=== PATIENT | male | born 1985 ===

== ENCOUNTER 2024-03-05 13:52 | Emergency (ER) | payer MEDICAID, OTHER, SELFPAY ==
[2024-03-05] VITALS (14 sets, daily range): BP systolic 112–140; BP diastolic 66–97; PULSE 78–108; RESP 12–32; TEMP 36.3; O2SAT 91–98; BMI 26.6
[2024-03-05 17:22] LABS: UR Morphine/Opiate cutoff 300 Negative (Negative); Ur Creatinine Normal (Normal); Ur Specific Gravity Normal (Normal); Urine Amphetamines Negative (Negative); Urine Barbiturates Negative (Negative); Urine Benzodiazepines Negative (Negative); Urine Cocaine Negative (Negative); Urine MDMA Negative (Negative); Urine Methadone Negative (Negative); Urine Methamphetamines Negative (Negative); Urine Oxycodone Negative (Negative); Urine Phencyclidine Negative (Negative); Urine Tetrahydrocannabinol Negative (Negative); Urine Tricyclic Antidepressant Negative (Negative); Urine pH Normal (Normal)
--- NOTE | 2024-03-05 17:22 | PC.NURSE ---
Monitor in room did not have correct patient ID information. This CLASSIFICATION CONTROL CLERK gathered vitals q30 from the time the patient was admitted and manually charted them.
[2024-03-05 17:31] LABS: Add Manual Diff / Slide Review NO; Basophils Absolute Auto 100 /uL (0-100); Basophils Percent Auto 2.7 % (0-2); Eosinophils Absolute Auto 100 /uL (0-450); Eosinophils Percent Auto 1.3 % (2-4); Hematocrit 42.7 % (41-53); Hemoglobin 14.5 g/dL (13.5-17.5); Lymphocytes Absolute Auto 1800 /uL (1100-4500); Lymphocytes Percent Auto 40.1 % (25-40); Mean Corpuscular HGB Conc 33.9 % (30-36); Mean Corpuscular Hemoglobin 34.7 PG (26-34); Mean Corpuscular Volume 102.1 fL (80-100); Monocytes Absolute Auto 300 /uL (0-900); Monocytes Percent Auto 6.8 % (3-14); Neutrophils Absolute Auto 2300 /uL (1500-7000); Neutrophils Percent Auto 49.1 % (50-75); Platelet Count 241 X10^3/uL (150-400); Red Blood Cell Count 4.18 X10^6/uL (4.5-5.9); Red Cell Distribution Width 14.5 % (11.6-14.8); White Blood Cell Count 4.6 X10^3/uL (4.5-11.0)
[2024-03-05 17:39] LABS: Alanine Aminotransferase 107 IU/L (<50); Albumin 4.5 g/dL (3.5-5.0); Albumin Globulin Ratio 1.7 (1.0-2.8); Alkaline Phosphatase 45 U/L (38-126); Aspartate Aminotransferase 113 IU/L (17-59); BUN Creatinine Ratio 9.9 (6-22); Bilirubin Total 0.6 mg/dL (0.2-1.3); Blood Urea Nitrogen 7 mg/dL (9-20); Calcium 8.4 mg/dL (8.4-10.2); Carbon Dioxide 26 mmol/L (22-32); Chloride 104 mmol/L (98-107); Estimated Glomerular Filt Rate > 60 mL/min (>60); Globulin 2.7 g/dL (1.7-4.1); Glucose 91 mg/dL (70-100); HEMOLYSIS 16 (0-50); Potassium 3.9 mmol/L (3.4-5.1); Sodium 142 mmol/L (137-145); Total Protein 7.2 g/dL (6.3-8.2)
[2024-03-05 17:40] LABS: COVID19 -Nasal RAPID Negative (Negative)
[2024-03-05 17:47] LABS: Ethanol (ETOH) 399 mg/dL
[2024-03-05 18:16] LABS: TSH w/ Reflex to FT4 0.36 uIU/mL (0.47-4.68)
[2024-03-05] MEDS: PHENobarbital 65 MG/ML VIAL 260 MG IV (18:36)
[2024-03-05 18:42] LABS: Free T4, Direct Thyroxine 0.92 ng/dL (0.78-2.19)
--- NOTE | 2024-03-05 18:45 | ED.GENADULT ---
HPI - General Adult General Chief complaint: Toxicology Problem Stated complaint: panic or heart attack Cardiac hx (poss suicidal) Time Seen by Provider: 03/05/24 17:01 Source: patient Mode of arrival: Family Vehicle History of Present Illness HPI narrative: Patient is a 38-year-old male with a history of alcohol abuse and also history of alcohol withdrawal seizures who is here for evaluation of what he states was a panic attack or potentially thinking that he was going to have a seizure. He states that he was on Keppra. He states that he was supposed to take 500 mg 2 times a day. Triage note states that he sometimes takes his medication every other day but patient states he normally takes it at least 1 time a day. He did take it this morning but not this evening. He does admit to drinking alcohol. Initial triage states the patient was interested in detox/rehab. Upon my evaluation the patient states he was feeling like he was going to have a seizure. He states he was feeling very anxious. Here in the ER states he was feeling much better. He denies chest pain, shortness of breath, abdominal pain or any seizure activity. Patient History Social History Smoking Status: Current every day smoker Smoking Status: Current every day smoker tobacco type: vaping alcohol intake frequency: 3 or more drinks per day Alcohol type: hard liquor Substance Use Type: marijuana Exam Initial Vital Signs Initial Vital Signs: Vital Signs Temperature 97.4 F L 03/05/24 14:19 Pulse Rate 108 H 03/05/24 14:19 Respiratory Rate 16 03/05/24 14:19 Blood Pressure 120/81 03/05/24 14:19 Pulse Oximetry 97 03/05/24 14:19 Oxygen Delivery Method Room Air 03/05/24 14:19 Const General: cooperative, comfortable and No ill appearing HENMT Head: normal to inspection and normocephalic Resp Effort & Inspection: normal respiratory effort Cardio Rate: regular rate GI Inspection: normal to inspection and non-distended Skin General: no rashes or lesions noted Neuro General: patient alert, patient awake and moves all extremities Extrem General: capillary refill normal Scores GCS Lyle coma scale eye opening: Spontaneous Otto coma scale verbal response: Orientated Otto coma scale motor response: Obey commands Ylle coma scale total score: 15 Course Orders Ordered: ED Orders 03/05/24 15:56 Urine Drug Screen, Rapid Stat 03/05/24 17:15 COVID19 -Nasal RAPID Stat 03/05/24 17:17 Complete Blood Count AUTO DIFF Stat Comprehensive Metabolic Panel Stat Ethanol (ETOH) Stat Free T4, Direct Thyroxine Stat TSH w/ Reflex to FT4 Stat 03/05/24 18:14 Consult to LONG DISTANCE BILLING OPERATOR - Grind Operator Stat Discontinued Medications Levetiracetam (Levetiracetam 250 Mg Tablet) 500 mg PO NOW ONE Stop: 03/05/24 18:46 Last Admin: 03/05/24 19:02 Dose: 500 mg Documented By: ALEXANDER Phenobarbital (Phenobarbital 65 Mg/Ml Vial) 260 mg IV NOW ONE Stop: 03/05/24 18:30 Last Admin: 03/05/24 18:36 Dose: 260 mg Documented By: JACQUES Vital Signs Vital signs: Vital Signs - 8 hr 03/05/24 15:00 03/05/24 15:40 03/05/24 16:00 Pulse Rate 96 H 89 87 Respiratory Rate 32 H 22 Blood Pressure 125/66 124/84 112/71 Pulse Oximetry 96 98 95 Oxygen Delivery Method Room Air Room Air Room Air 03/05/24 17:00 03/05/24 17:14 03/05/24 17:15 Pulse Rate 79 78 Respiratory Rate 20 Blood Pressure 119/77 113/72 Pulse Oximetry 91 93 Oxygen Delivery Method Room Air 03/05/24 17:15 03/05/24 17:31 03/05/24 17:32 Pulse Rate 92 H 105 H Respiratory Rate 19 26 H Blood Pressure 131/97 H Pulse Oximetry 93 96 Oxygen Delivery Method 03/05/24 17:32 03/05/24 18:00 03/05/24 18:00 Pulse Rate 102 H 92 H Respiratory Rate 14 17 Blood Pressure 130/87 Pulse Oximetry 96 97 Oxygen Delivery Method Room Air 03/05/24 19:07 03/05/24 19:23 03/05/24 19:23 Pulse Rate 93 H 100 H Respiratory Rate 14 12 Blood Pressure 122/85 Pulse Oximetry 95 96 Oxygen Delivery Method Room Air 03/05/24 19:30 03/05/24 19:30 Pulse Rate 106 H Respiratory Rate 21 Blood Pressure 140/77 Pulse Oximetry 95 Oxygen Delivery Method Room Air Medical Decision Making Lab Data Lab results reviewed: Yes I reviewed the patient's lab results. 03/05/24 17:17 11/04/24 17:17 Labs: Lab Results 03/05/24 03/05/24 03/05/24 Range/Units 15:56 17:15 17:17 WBC 4.6 (4.5-11.0) X10^3/uL RBC 4.18 L (4.5-5.9) X10^6/uL Hgb 14.5 (13.5-17.5) g/dL Hct 42.7 (41-53) % MCV 102.1 H (80-100) fL MCH 34.7 H (26-34) PG MCHC 33.9 (30-36) % RDW 14.5 (11.6-14.8) % Plt Count 241 (150-400) X10^3/uL Neut % (Auto) 49.1 L (50-75) % Lymph % (Auto) 40.1 H (25-40) % [place] % (Auto) 6.8 (3-14) % Eos % (Auto) 1.3 L (2-4) % Baso % (Auto) 2.7 H (0-2) % Neut # (Auto) 2300 (2663-0056) /uL Lymph # (Auto) 1800 (4829-6472) /uL [place] # (Auto) 300 (0-900) /uL Eos # (Auto) 100 (0-450) /uL Baso # (Auto) 100 (0-100) /uL Sodium 142 (137-145) mmol/L Potassium 3.9 (3.4-5.1) mmol/L Chloride 104 (98-107) mmol/L Carbon Dioxide 26 (22-32) mmol/L BUN 7 L (9-20) mg/dL Creatinine 0.71 (0.66-1.25) mg/dL Estimated GFR > 60 (>60) mL/min BUN/Creatinine Ratio 9.9 (6-22) Glucose 91 (70-100) mg/dL Calcium 8.4 (8.4-10.2) mg/dL Total Bilirubin 0.6 (0.2-1.3) mg/dL AST 113 H (17-59) IU/L ALT 107 H (<50) IU/L Alkaline Phosphatase 45 (38-126) U/L Total Protein 7.2 (6.3-8.2) g/dL Albumin 4.5 (3.5-5.0) g/dL Globulin 2.7 (1.7-4.1) g/dL Albumin/Globulin Ratio 1.7 (1.0-2.8) TSH 0.36 L (0.47-4.68) uIU/mL Free T4 0.92 (0.78-2.19) ng/dL U Opiates 300ng/mL cut Negative (Negative) Ur Oxycodone Screen Negative (Negative) Urine Methadone Screen Negative (Negative) Ur Barbiturates Screen Negative (Negative) U Tricyclic Antidepress Negative (Negative) Ur Phencyclidine Scrn Negative (Negative) Ur Amphetamines Screen Negative (Negative) U Methamphetamines Scrn Negative (Negative) Ur MDMA Scrn (Ecstasy) Negative (Negative) U Benzodiazepines Scrn Negative (Negative) Urine Cocaine Screen Negative (Negative) U Marijuana (THC) Screen Negative (Negative) Urine pH Normal (Normal) Urine Specific [place] Normal (Normal) Ethyl Alcohol 399 H ( - 10) mg/dL Ur Creatinine Normal (Normal) SARS-CoV-2 (PCR) Negative (Negative) Urine Dip Bedside Urine Glucose Negative Bedside Urine Bilirubin - Negative Bedside Urine Ketone - Negative Urine Specific [place] 1.005 Bedside Urine Occult Blood - Negative Bedside Urine pH 6.5 Bedside Urine Protein - Negative Bedside Urine Urobilinogen - Negative Bedside Urine Nitrite - Negative Bedside Urine Leukocytes - Negative Esterase Point of care testing: Urine Dip Bedside Urine Glucose Negative Bedside Urine Bilirubin - Negative Bedside Urine Ketone - Negative Urine Specific [place] 1.005 Bedside Urine Occult Blood - Negative Bedside Urine pH 6.5 Bedside Urine Protein - Negative Bedside Urine Urobilinogen - Negative Bedside Urine Nitrite - Negative Bedside Urine Leukocytes - Negative Esterase MDM Narrative Medical decision making narrative: Upon my evaluation the patient was clinically sober. He was alert and oriented x3. GCS of 15. Tolerating oral intake. Is ambulatory. No seizure activity. Patient states he was feeling much better. He was given a dose of his Keppra. I had a long discussion with him regarding his alcohol use. He states that he has a place that stated that they would have beds available tomorrow that he was like to go home. He was family/girlfriend with him that will take him home. He states that he does not want to stay in the emergency department this evening. He felt comfortable going home. Will discharge home with return precautions. He expressed understanding and agreement with plan. Discharge Plan Departure Patient Disposition: Home Clinical Impression: Alcoholic intoxication, Panic disorder Instructions: DI for Alcohol Use Disorder Activity Restrictions/Additional Instructions: It was important that you take your Keppra 2 times a day. No driving for the next 24 hours or in the future if you drink alcohol. Either recommend that you pursue alcohol detox/rehab tomorrow. Return to the emergency department for new or worsening symptoms. Stand Alone Forms: Patient Portal/API/Survey
[2024-03-05] MEDS: levETIRAcetam 250 MG TABLET 500 MG PO (19:02)
== END 2024-03-05 19:37 | disposition home or self-care (01) ==
PROVIDERS: Emergency Medicine; Emergency Provider Emergency Medicine
DX: F10.129 Alcohol abuse with intoxication, unspecified (principal); Y90.8 Blood alcohol level of 240 mg/100 ml or more; Z11.52 Encounter for screening for COVID-19; F41.0 Panic disorder [episodic paroxysmal anxiety]; R40.2412 Glasgow coma scale score 13-15, at arrival to emergency department
CPT/HCPCS: 36415; 80053; 80305; 80320; 81003; 84439; 84443; 85025; 87635; 96374; 99284; J2560

== ENCOUNTER 2024-04-16 10:38 | Emergency (ER) | payer OTHER, SELFPAY ==
[2024-04-16] VITALS (16 sets, daily range): BP systolic 110–129; BP diastolic 67–92; PULSE 75–97; RESP 17–25; TEMP 36.8; O2SAT 93–97; BMI 26.3
--- NOTE | 2024-04-16 10:53 | EKG_ITS ---
[address] [address] Test Date: 2024-04-16 Pat Name: Mason Amaral Department: Room: Gender: Male Fare Enforcement Officer: TREVOR : 1985 Requested By: Order Number: [id number] Reading MD: Mason Coates Measurements Intervals [place] Rate: 78 P: 51 KS: 174 QRS: 53 QRSD: 90 T: 31 QT: 380 QTc: 433 Interpretive Statements Normal sinus rhythm Electronically Signed On 04-17-2024 19:42:33 PST by Mason Coates
--- NOTE | 2024-04-16 10:58 | ED_ITS ---
HPI - Seizure General Chief Complaint: Seizure Stated Complaint: seizure x2 Time Seen by Provider: 04/16/24 10:58 History of Present Illness HPI Narrative: Patient is a 39-year-old male who has a known alcoholic presenting today with possible 2 seizures last night. He is taking Keppra and has since June of this year after being at detox facility. He has been on 500 twice a day it has on an automatic refill and has never been evaluated by Neurology. He continues to drink alcohol sporadically. Between he and his girlfriend they drank a gal a day. Over the last 4 days they have shared for gal of alcohol. He reports that last night he was intoxicated. Girlfriend noted that he had foaming at the mouth and some Ramo shaking lasting 1-2 minutes. He then reports he had a full recovery in approximately 30 minutes later he had another seizure. This was all at about 930 last evening. He admits that he took Keppra last night and he took another 1 this morning. He did drink a little bit of alcohol this morning to help with the shaking. He is interested in detox. Related Data Allergies Allergy/AdvReac Type Severity Reaction Status Date / Time No Known Drug Allergies Allergy Verified 04/16/24 13:09 Patient History Social History Smoking Status: Current every day smoker Smoking Status: Current every day smoker tobacco type: vaping alcohol intake frequency: 3 or more drinks per day Alcohol type: hard liquor Exam Initial Vital Signs Initial Vital Signs: Vital Signs Temperature 98.2 F 04/16/24 10:40 Pulse Rate 92 H 04/16/24 10:40 Respiratory Rate 22 04/16/24 10:40 Blood Pressure 123/82 04/16/24 10:40 Pulse Oximetry 94 04/16/24 10:40 Oxygen Delivery Method Room Air 04/16/24 10:40 GENERAL: Alert pleasant well-appearing 39-year-old male no slurring of speech appreciated and in no acute distress. HEENT: Head atraumatic,EOMI, pupils reactive, face symmetric, moist mucous membranes CARDIOVASCULAR: Regular rate and rhythm without murmurs, rubs or gallops. RESPIRATORY: Breath sounds equal bilaterally, no wheezes rales or rhonchi. ABDOMEN: Soft, nontender. Normoactive bowel sounds all 4 quadrants. No guarding or rebound. EXTREMITIES: Normal range of motion, no clubbing or edema. Neurovascularly intact NEUROLOGICAL: Alert and oriented x4.Normal gait and speech. Cranial nerves II through XII grossly intact. Offc Spec strength equal bilaterally SKIN: Warm, dry, no laceration, no petechiae, no rashes or lesions. Course Orders Ordered: ED Orders 04/16/24 10:53 EKG-12 Lead Routine 04/16/24 10:56 CBC Auto Diff [Complete Blood Count AUTO DIFF] Stat CMP [Comprehensive Metabolic Panel] Stat ETOH [Ethanol (ETOH)] Stat TSH [Thyroid Stimulating Hormone] Stat 04/16/24 10:59 Consult to NUCLEAR REACTOR ENGINEER - Customs And Immigration Officer Stat CT head/brain wo con Stat 04/16/24 11:20 Urine Drug Screen, Rapid Stat Discontinued Medications Lorazepam (Lorazepam 2 Mg/Ml Inj) 2 mg IV NOW ONE Stop: 04/16/24 12:39 Last Admin: 04/16/24 13:19 Dose: 2 mg Documented By: SPF Vital Signs Vital signs: Vital Signs - 8 hr 04/16/24 11:23 04/16/24 11:23 04/16/24 11:30 Pulse Rate 80 Respiratory Rate 23 Blood Pressure 129/84 118/72 Pulse Oximetry 96 Oxygen Delivery Method 04/16/24 11:30 04/16/24 12:00 04/16/24 12:00 Pulse Rate 81 75 Respiratory Rate 20 18 Blood Pressure 119/75 Pulse Oximetry 96 94 Oxygen Delivery Method Room Air 04/16/24 12:30 04/16/24 12:30 04/16/24 13:00 Pulse Rate 77 79 Respiratory Rate 18 24 Blood Pressure 110/67 Pulse Oximetry 94 97 Oxygen Delivery Method Room Air 04/16/24 13:00 04/16/24 13:16 04/16/24 13:16 Pulse Rate 88 Respiratory Rate 19 Blood Pressure 124/90 129/92 H Pulse Oximetry 97 Oxygen Delivery Method 04/16/24 13:30 04/16/24 13:31 04/16/24 13:31 Pulse Rate 95 H 97 H Respiratory Rate 25 H 23 Blood Pressure 127/79 Pulse Oximetry 97 97 Oxygen Delivery Method Room Air 04/16/24 14:00 04/16/24 14:00 04/16/24 14:30 Pulse Rate 97 H Respiratory Rate 24 Blood Pressure 114/82 116/71 Pulse Oximetry 96 Oxygen Delivery Method 04/16/24 14:30 04/16/24 15:00 04/16/24 15:00 Pulse Rate 89 87 Respiratory Rate 18 17 Blood Pressure 112/72 Pulse Oximetry 94 94 Oxygen Delivery Method Room Air 04/16/24 15:30 04/16/24 15:31 04/16/24 15:31 Pulse Rate 95 H 94 H Respiratory Rate 19 21 Blood Pressure 126/82 Pulse Oximetry Oxygen Delivery Method MDM - Seizure Lab Data 04/16/24 10:56 04/16/24 10:56 Labs: Lab Results 04/16/24 04/16/24 Range/Units 10:56 11:20 WBC 6.0 (4.5-11.0) X10^3/uL RBC 4.38 L (4.5-5.9) X10^6/uL Hgb 15.2 (13.5-17.5) g/dL Hct 45.0 (41-53) % MCV 102.8 H (80-100) fL MCH 34.7 H (26-34) PG MCHC 33.8 (30-36) % RDW 13.6 (11.6-14.8) % Plt Count 287 (150-400) X10^3/uL Neut % (Auto) 62.6 (50-75) % Lymph % (Auto) 29.5 (25-40) % [place] % (Auto) 6.8 (3-14) % Eos % (Auto) 0.1 L (2-4) % Baso % (Auto) 1.0 (0-2) % Neut # (Auto) 3800 (9524-3910) /uL Lymph # (Auto) 1800 (7875-0396) /uL [place] # (Auto) 400 (0-900) /uL Eos # (Auto) 0 (0-450) /uL Baso # (Auto) 100 (0-100) /uL Sodium 140 (137-145) mmol/L Potassium 4.0 (3.4-5.1) mmol/L Chloride 101 (98-107) mmol/L Carbon Dioxide 24 (22-32) mmol/L BUN 10 (9-20) mg/dL Creatinine 0.82 (0.66-1.25) mg/dL Estimated GFR > 60 (>60) mL/min BUN/Creatinine Ratio 12.2 (6-22) Glucose 148 H (70-100) mg/dL Calcium 8.7 (8.4-10.2) mg/dL Total Bilirubin 0.4 (0.2-1.3) mg/dL AST 119 H (17-59) IU/L ALT 76 H (<50) IU/L Alkaline Phosphatase 56 (38-126) U/L Total Protein 7.6 (6.3-8.2) g/dL Albumin 4.6 (3.5-5.0) g/dL Globulin 3.0 (1.7-4.1) g/dL Albumin/Globulin Ratio 1.5 (1.0-2.8) TSH 0.852 (0.47-4.68) uIU/mL U Opiates 300ng/mL cut Negative (Negative) Ur Oxycodone Screen Negative (Negative) Urine Methadone Screen Negative (Negative) Ur Barbiturates Screen Negative (Negative) U Tricyclic Antidepress Negative (Negative) Ur Phencyclidine Scrn Negative (Negative) Ur Amphetamines Screen Negative (Negative) U Methamphetamines Scrn Negative (Negative) Ur MDMA Scrn (Ecstasy) Negative (Negative) U Benzodiazepines Scrn Negative (Negative) Urine Cocaine Screen Negative (Negative) U Marijuana (THC) Screen Negative (Negative) Urine pH Normal (Normal) Urine Specific [place] Normal (Normal) Ethyl Alcohol 390 H ( - 10) mg/dL Ur Creatinine Normal (Normal) Imaging Data CT scan - head: Radiologist's Impression: PROCEDURE: CT HEAD/BRAIN WO CON INDICATIONS: new seizure TECHNIQUE: Noncontrast 4.5 mm thick angled axial sections acquired from the foramen magnum to the vertex, with coronal and sagittal reformats. For radiation dose reduction, the following was used: automated exposure control, adjustment of mA and/or kV according to patient size. COMPARISON: None. FINDINGS: Image quality: Diagnostic CSF spaces: Basal cisterns are patent. Lateral ventricles are symmetric. Volume: No significant volume loss Brain: No acute hemorrhage. No gross loss of juárez-white differentiation Craniofacial structures: Paranasal sinus opacification, most significant in the left maxillary. IMPRESSION: No acute intracranial abnormality. If there is high concern for parenchymal pathology, consider further evaluation with MRI. Dictated by: Art Linder M.D. on 04/16/2024 at 11:26 Approved by: Art Linder M.D. on 04/16/2024 at 11:28 ECG Data Attestation: I personally reviewed and interpreted this ECG as follows: Interpretation: Normal sinus rhythm rate 78 DC interval 174 QRS [address] changes no T- wave inversions MDM Narrative Medical decision making narrative: MARLEEN CC: Seizure Complicating co-morbidities: Alcohol abuse prior seizure history Medical records reviewed: Previous ED visit in March Differential considered: Alcohol withdrawal seizure, seizure, hyponatremia electrolyte abnormality Exam documented above, pertinent findings include: Awake alert appropriate no focal deficits moving all extremities Lab Test results independently reviewed as above. Pertinent findings: Alcohol 390 Drug tox negative Sodium 140 potassium 4.0 chloride 101 carbon dioxide 24 BUN 10 creatinine 0.82 glucose 148 Bilirubin 0.4 AST 119 ALT 76 alk-phos 56 TSH 0.85 Independently reviewed EKG as above no ischemia Imaging studies independently reviewed: Head CT negative for intracranial hemorrhage or mass Treatments: Ativan Re-evaluations: Patient remained stable some mild shaking. Discussion: Patient 39-year-old male presents today with 2 seizures last night. It sounds as though he had 1-2 minute seizure 30 minutes apart some foaming at the mouth but no urinary incontinence or tongue biting. He has had alcohol withdrawal seizures before. He is currently intoxicated. He has been taking Keppra. He has had no further seizures in the ED he has been monitored here for about 4-1/2 hours. He was specific about what detox centers he wanted to go to. We do not have social work today but attempted calling the detox center today do not have any beds. He has not in alcohol withdrawal this time. Recommend that he continue taking his Keppra he will need to follow-up for refills and Keppra adjustment. Discharge Plan Departure Patient Disposition: Home Clinical Impression: Seizure, Alcohol abuse Instructions: DI for Seizure Disorder -- Adult Activity Restrictions/Additional Instructions: *You have been diagnosed with seizure alcohol abuse *What to do: At this time I recommend that you call detox place. I do not recommend that you stop drinking without supervision *Continue to take medications as directed Continue to take your Keppra. You will need to follow-up to make sure that you have refills that you do not need any sort of dosing adjustment *Follow up with your primary care provider in 2-3 days or call [phone] *Return to ER if you should have any new, worsening or concerning symptoms Stand Alone Forms: Patient Portal/API/Survey
[2024-04-16 11:13] LABS: Add Manual Diff / Slide Review NO; Basophils Absolute Auto 100 /uL (0-100); Eosinophils Absolute Auto 0 /uL (0-450); Eosinophils Percent Auto 0.1 % (2-4); Hemoglobin 15.2 g/dL (13.5-17.5); Lymphocytes Absolute Auto 1800 /uL (1100-4500); Lymphocytes Percent Auto 29.5 % (25-40); Mean Corpuscular HGB Conc 33.8 % (30-36); Mean Corpuscular Hemoglobin 34.7 PG (26-34); Mean Corpuscular Volume 102.8 fL (80-100); Monocytes Absolute Auto 400 /uL (0-900); Monocytes Percent Auto 6.8 % (3-14); Neutrophils Absolute Auto 3800 /uL (1500-7000); Neutrophils Percent Auto 62.6 % (50-75); Platelet Count 287 X10^3/uL (150-400); Red Blood Cell Count 4.38 X10^6/uL (4.5-5.9); Red Cell Distribution Width 13.6 % (11.6-14.8)
[2024-04-16 11:21] LABS: Alanine Aminotransferase 76 IU/L (<50); Albumin 4.6 g/dL (3.5-5.0); Albumin Globulin Ratio 1.5 (1.0-2.8); Alkaline Phosphatase 56 U/L (38-126); Aspartate Aminotransferase 119 IU/L (17-59); BUN Creatinine Ratio 12.2 (6-22); Bilirubin Total 0.4 mg/dL (0.2-1.3); Blood Urea Nitrogen 10 mg/dL (9-20); Calcium 8.7 mg/dL (8.4-10.2); Carbon Dioxide 24 mmol/L (22-32); Chloride 101 mmol/L (98-107); Estimated Glomerular Filt Rate > 60 mL/min (>60); Glucose 148 mg/dL (70-100); HEMOLYSIS 19 (0-50); Sodium 140 mmol/L (137-145); Total Protein 7.6 g/dL (6.3-8.2)
[2024-04-16 11:29] LABS: Ethanol (ETOH) 390 mg/dL
[2024-04-16 11:37] LABS: Ur Creatinine Normal (Normal); Ur Specific Gravity Normal (Normal); Urine Amphetamines Negative (Negative); Urine Barbiturates Negative (Negative); Urine Benzodiazepines Negative (Negative); Urine Cocaine Negative (Negative); Urine MDMA Negative (Negative); Urine Methadone Negative (Negative); Urine Methamphetamines Negative (Negative); Urine Opiates Negative (Negative); Urine Oxycodone Negative (Negative); Urine Phencyclidine Negative (Negative); Urine THC Negative (Negative); Urine Tricyclic Antidepressant Negative (Negative); Urine pH Normal (Normal)
[2024-04-16 11:55] LABS: Thyroid Stimulating Hormone 0.852 uIU/mL (0.47-4.68)
[2024-04-16] MEDS: LORazepam 2 MG/ML INJ IV (13:19)
--- NOTE | 2024-04-16 14:40 | PC.NURSE ---
Pt laying in bed, no signs of distress. Breathing equal and unlabored.
== END 2024-04-16 15:43 | disposition home or self-care (01) ==
PROVIDERS: Emergency Provider Emergency Medicine
DX: R56.9 Unspecified convulsions (principal); F10.129 Alcohol abuse with intoxication, unspecified; Y90.8 Blood alcohol level of 240 mg/100 ml or more
CPT/HCPCS: 36415; 70450; 80053; 80305; 80320; 84443; 85025; 93005; 96374; 99284; J2060